=== PATIENT | male | born 1985 | race Caucasian/White ===

== ENCOUNTER 2021-07-19 13:30 | Emergency (ER) | payer MEDICAID ==
[~2021-07-19] VITALS: Ht 172.7 cm; Wt 68.2 kg
[2021-07-19 13:42] VITALS: BP 122/98
== END 2021-07-19 15:22 | disposition home or self-care (01) ==
LOC: ER 13:31
DX: F10.10 Alcohol abuse, uncomplicated (principal); R56.9 Unspecified convulsions; R00.0 Tachycardia, unspecified; Z72.89 Other problems related to lifestyle; Y90.9 Presence of alcohol in blood, level not specified
CPT/HCPCS: 99281

== ENCOUNTER 2021-08-01 16:53 | Emergency (ER) | payer MEDICAID ==
[~2021-08-01] VITALS: Ht 172.7 cm; Wt 65.0 kg
[2021-08-01 17:38] VITALS: BP 126/68
[2021-08-01] MEDS ORDERED: GABA300C PO (17:44)
== END 2021-08-01 17:43 | disposition home or self-care (01) ==
LOC: ER 16:54
DX: F10.19 Alcohol abuse with unspecified alcohol-induced disorder (principal); Z59.00 Homelessness unspecified
CPT/HCPCS: 99283